=== PATIENT | male | born 1970 | race Caucasian/White ===

== ENCOUNTER 2019-07-14 09:41 | Emergency (ER) | payer SELFPAY ==
[2019-07-14 10:37] LABS: Absolute Lymphocytes (CBC) 1.4 K/uL (0.7-4.9); Basophils % 1.4 % (0-1.3); Hematocrit 46.8 % (39.6-49.0); Lymphocytes % 29.4 % (15.3-44.8); MPV 7.8 fL (7.6-11.3); RBC Red Blood Cell Count 4.65 M/uL (4.33-5.43)
[2019-07-14 10:50] LABS: Magnesium 2.1 mg/dL (1.8-2.4); Potassium 4.4 mmol/L (3.5-5.1)
--- NOTE | 2019-07-14 11:58 | ER ---
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 Denies history of HTN. Patient states "I've just been feeling funny for the past couple weeks, like today my face feels hot, and I'm a little dizzy sometimes". Transition of care: patient was not received from another setting of care. Onset of symptoms was July 14, 2019. Risk Assessment: Do you want to hurt yourself or someone else? Patient reports no desire to harm self or others. Initial Sepsis Screen: Does the patient meet any 2 criteria? No. Patient's initial sepsis screen is negative. Does the patient have a suspected source of infection? No. Patient's initial sepsis screen is negative. Care prior to arrival: None. 10:01 Method Of Arrival: Ambulatory aj1 10:01 Acuity: MARTÍNEZ 3 aj1 Triage Assessment: 10:03 General: Appears in no apparent distress. comfortable, Behavior is calm, cooperative, aj1 appropriate for age. Pain: Complains of pain in left hip Pain currently is 2 out of 10 on a pain scale. Neuro: Level of Consciousness is awake, alert, obeys commands. Cardiovascular: Patient's skin is warm and dry. Respiratory: Airway is patent Respiratory effort is even, unlabored, Respiratory pattern is regular, symmetrical. Historical: - Allergies: 10:03 NKDA; aj1 - Home Meds: 10:03 None [Active]; aj1 - PMHx: 10:03 None; aj1 - PSHx: 10:03 back surgery; c6-c7 fusion; aj1 - Immunization history:: Flu vaccine is not up to date. - Social history:: Smoking status: Patient uses tobacco products, smokes one-half pack cigarettes per day, chewing tobacco. - Ebola Screening: : Patient denies travel to an Ebola-affected area in the 21 days before illness onset. Screenin:07 Abuse screen: Denies threats or abuse. Nutritional screening: No deficits noted. tw2 Tuberculosis screening: No symptoms or risk factors identified. Fall Risk None identified. Assessment: 10:17 General: Appears in no apparent distress. obese, well groomed, Behavior is calm, tw2 cooperative, appropriate for age. Pain: Denies pain. Neuro: Level of Consciousness is awake, alert, obeys commands, Oriented to person, place, time, situation. Cardiovascular: Heart tones S1 S2 Patient's skin is warm and dry. Respiratory: Airway is patent Respiratory effort is even, unlabored, Respiratory pattern is regular, symmetrical, Breath sounds are clear bilaterally. GI: Abdomen is round non-distended, obese, Bowel sounds present X 4 quads. : No signs and/or symptoms were reported regarding the genitourinary system. EENT: No signs and/or symptoms were reported regarding the EENT system. Derm: No signs and/or symptoms reported regarding the dermatologic system. Musculoskeletal: Range of motion: intact in all extremities. 11:08 Reassessment: Patient appears in no apparent distress at this time. No changes from tw2 previously documented assessment. Patient and/or family updated on plan of care and expected duration. Pain level reassessed. Patient is alert, oriented x 3, equal unlabored respirations, skin warm/dry/pink. 11:57 Reassessment: Patient appears in no apparent distress at this time. No changes from tw2 previously documented assessment. Patient and/or family updated on plan of care and expected duration. Pain level reassessed. Patient is alert, oriented x 3, equal unlabored respirations, skin warm/dry/pink. 12:01 Reassessment: provider at bedside at this time. tw2 12:17 Reassessment: Patient appears in no apparent distress at this time. No changes from tw2 previously documented assessment. Patient and/or family updated on plan of care and expected duration. Pain level reassessed. Patient is alert, oriented x 3, equal unlabored respirations, skin warm/dry/pink. Vital Signs: 10:03 BP 160 / 89; Pulse 73; Resp 18; Temp 98.5; Pulse Ox 99% on R/A; Height 6 ft. 1 in. aj1 (185.42 cm) (R); Pain 2/10; 10:16 BP 152 / 86; Pulse 76; Resp 17; Pulse Ox 100% on R/A; tw2 11:08 BP 144 / 69; Pulse 71; Resp 17; Pulse Ox 97% on R/A; tw2 11:57 BP 151 / 86; Pulse 66; Resp 17; Pulse Ox 98% on R/A; tw2 ED Course: 09:45 Patient arrived in ED. ag5 09:45 Unknown, Unknown is Private Physician. ag5 09:50 Dimitrios Cano PA is PHCP. jr8 09:50 Dwaine Ware MD is Attending Physician. jr8 10:03 Triage completed. aj1 10:03 Arm band placed on Patient placed in an exam room. aj1 10:07 Steff Renee, RN is Primary Nurse. tw2 10:07 Bed in low position. Call light in reach. monitor tech on. Pulse ox on. NIBP on. tw2 10:26 Inserted saline lock: 20 gauge in right antecubital area, using aseptic technique. hb Blood collected. 12:01 No provider procedures requiring assistance completed. IV discontinued, intact, tw2 bleeding controlled, No redness/swelling at site. Pressure dressing applied. Administered Medications: No medications were administered Outcome: 11:58 Discharge ordered by . jr8 12:01 Discharged to home ambulatory. tw2 12:01 Condition: stable 12:01 Discharge instructions given to patient, Instructed on discharge instructions, follow up and referral plans. medication usage, Demonstrated understanding of instructions, follow-up care, medications, Prescriptions given X 2. 12:18 Patient left the ED. tw2 Signatures: Isabel Grider RN RN aj Dimitrios Cano PA PA jr8 Mihaela Armas RN RN Steff Renee RN RN tw2 Arlen Cuello ag5
--- NOTE | 2019-07-14 11:59 | EDPHYS ---
Physician Documentation [facility] Name: Prince Paul Age: 49 yrs Sex: Male : 1970 Arrival Date: 07/14/2019 Time: 09:45 Bed 8 Private MD: Unknown, Unknown ED Physician Dwaine Ware HPI: 07/14 10:31 This 49 yrs old Male presents to ER via Ambulatory with complaints of High jr8 Blood Pressure. 10:31 The patient has elevated blood pressure and discovered this work. Onset: The jr8 symptoms/episode began/occurred yesterday. Associated signs and symptoms: Pertinent negatives: chest pain, dizziness, dyspnea, headache, lightheadedness, nausea, visual changes, vomiting, weakness. Severity of symptoms: At its worst the blood pressure was moderate, in the emergency department the blood pressure is improved, markedly, 156 mm Hg. The patient has not experienced similar symptoms in the past. Pt was feeling bad at work, had BP checked, was in the 200s systolic, unknown cuff size or type. Pt reports at that time he had a OCHOA but it has since resolved. States he has not seen a doctor in many years and has no known history of HTN. Historical: - Allergies: 10:03 NKDA; aj1 - Home Meds: 10:03 None [Active]; aj1 - PMHx: 10:03 None; aj1 - PSHx: 10:03 back surgery; c6-c7 fusion; aj1 - Immunization history:: Flu vaccine is not up to date. - Social history:: Smoking status: Patient uses tobacco products, smokes one-half pack cigarettes per day, chewing tobacco. - Ebola Screening: : Patient denies travel to an Ebola-affected area in the 21 days before illness onset. ROS: 10:31 Constitutional: Negative for fever, chills, and weight loss, Eyes: Negative for injury, jr8 pain, redness, and discharge, ENT: Negative for injury, pain, and discharge, Neck: Negative for injury, pain, and swelling, Cardiovascular: Negative for chest pain, palpitations, and edema, Respiratory: Negative for shortness of breath, cough, wheezing, and pleuritic chest pain, Abdomen/GI: Negative for abdominal pain, nausea, vomiting, diarrhea, and constipation, Back: Negative for injury and pain, MS/Extremity: Negative for injury and deformity, Skin: Negative for injury, rash, and discoloration, Neuro: Negative for headache, weakness, numbness, tingling, and seizure. Exam: 10:31 Constitutional: This is a well developed, well nourished patient who is awake, alert, jr8 and in no acute distress. Head/Face: Normocephalic, atraumatic. Eyes: Pupils equal round and reactive to light, extra-ocular motions intact. Lids and lashes normal. Conjunctiva and sclera are non-icteric and not injected. Cornea within normal limits. Periorbital areas with no swelling, redness, or edema. ENT: Nares patent. No nasal discharge, no septal abnormalities noted. Tympanic membranes are normal and external auditory canals are clear. Oropharynx with no redness, swelling, or masses, exudates, or evidence of obstruction, uvula midline. Mucous membranes moist. Neck: Trachea midline, no thyromegaly or masses palpated, and no cervical lymphadenopathy. Supple, full range of motion without nuchal rigidity, or vertebral point tenderness. No Meningismus. Chest/axilla: Normal chest wall appearance and motion. Nontender with no deformity. No lesions are appreciated. Cardiovascular: Regular rate and rhythm with a normal S1 and S2. No gallops, murmurs, or rubs. Normal PMI, no JVD. No pulse deficits. Respiratory: Lungs have equal breath sounds bilaterally, clear to auscultation and percussion. No rales, rhonchi or wheezes noted. No increased work of breathing, no retractions or nasal flaring. Abdomen/GI: Soft, non-tender, with normal bowel sounds. No distension or tympany. No guarding or rebound. No evidence of tenderness throughout. MS/ Extremity: Pulses equal, no cyanosis. Neurovascular intact. Full, normal range of motion. Neuro: Awake and alert, GCS 15, oriented to person, place, time, and situation. Cranial nerves II-XII grossly intact. Motor strength 5/5 in all extremities. Sensory grossly intact. Cerebellar exam normal. Normal gait. Vital Signs: 10:03 BP 160 / 89; Pulse 73; Resp 18; Temp 98.5; Pulse Ox 99% on R/A; Height 6 ft. 1 in. aj1 (185.42 cm) (R); Pain 2/10; 10:16 BP 152 / 86; Pulse 76; Resp 17; Pulse Ox 100% on R/A; tw2 11:08 BP 144 / 69; Pulse 71; Resp 17; Pulse Ox 97% on R/A; tw2 11:57 BP 151 / 86; Pulse 66; Resp 17; Pulse Ox 98% on R/A; tw2 MDM: 10:30 Patient medically screened. [facility] 11:48 Data reviewed: vital signs, nurses notes, lab test result(s), EKG. Data interpreted: 8 Pulse oximetry: on room air is 97 %. Interpretation: normal. Counseling: I had a detailed discussion with the patient and/or guardian regarding: the historical points, exam findings, and any diagnostic results supporting the discharge/admit diagnosis, lab results, the need for outpatient follow up, a family practitioner, to return to the emergency department if symptoms worsen or persist or if there are any questions or concerns that arise at home. 07/14 10:22 Order name: CBC with Diff; Complete Time: 10:40 [facility] 07/14 10:22 Order name: BMP; Complete Time: 10:51 [facility] 07/14 10:22 Order name: Magnesium; Complete Time: 10:51 [facility] 07/14 11:29 Order name: Hemoglobin A1c [facility] 07/14 10:22 Order name: EKG; Complete Time: 10:23 [facility] 07/14 10:22 Order name: EKG - Nurse/Tech; Complete Time: 10:26 [facility] 07/14 11:35 Order name: Hemoglobin A1c; Complete Time: 11:57 EDMS Administered Medications: No medications were administered Disposition: 12:39 Co-signature as Attending Physician, Dwaine Ware MD. rn Disposition: 07/14/19 11:58 Discharged to Home. Impression: Type 2 diabetes mellitus, Essential (primary) hypertension. - Condition is Stable. - Discharge Instructions: Type 2 Diabetes Mellitus, Diagnosis, Adult, Hypertension, Heart Disease Prevention, Diabetes and Exercise, Diabetes Mellitus and Food, DASH Eating Plan. - Prescriptions for Metformin 500 mg Oral Tablet - take 1 tablet by ORAL route once daily for 7 days Then take 1 tablet with morning meals AND evening meals; 60 tablet. Lisinopril- Hydrochlorothiazide 10-12.5 mg Oral Tablet - take 1 tablet by ORAL route once daily; 30 tablet. - Medication Reconciliation Form, Thank You Letter, Antibiotic Education, Prescription Opioid Use, Work release form form. - Follow up: Private Physician; When: 1 week; Reason: Recheck today's complaints, Continuance of care, Re-evaluation by your physician. - Problem is new. - Symptoms have improved. Signatures: Dispatcher [employer] [facility] Isabel Grider RN RN aj1 Dwaine Ware MD MD rn Roszak, Josh, PA PA jr8 Steff Renee RN RN tw2 Corrections: (The following items were deleted from the chart) 10:53 10:52 HEMOGLOBIN A1C+CHEM A1C.LAB.BRZ ordered. [facility] 11:55 11:33 Hemoglobin A1c ordered. [facility] 12:18 11:58 07/14/2019 11:58 Discharged to Home. Impression: Type 2 diabetes mellitus; tw2 Essential (primary) hypertension. Condition is Stable. Discharge Instructions: Type 2 Diabetes Mellitus, Diagnosis, Adult, Hypertension, Heart Disease Prevention, Diabetes and Exercise, Diabetes Mellitus and Food, DASH Eating Plan. Prescriptions for Metformin 500 mg Oral Tablet - take 1 tablet by ORAL route once daily for 7 days Then take 1 tablet with morning meals AND evening meals; 60 tablet, Lisinopril-Hydrochlorothiazide 10-12.5 mg Oral Tablet - take 1 tablet by ORAL route once daily; 30 tablet. and Forms are Work release form, Medication Reconciliation Form, Thank You Letter, Antibiotic Education, Prescription Opioid Use. Follow up: Private Physician; When: 1 week; Reason: Recheck today's complaints, Continuance of care, Re-evaluation by your physician. Problem is new. Symptoms have improved. jr8
[2019-07-14 12:33] VITALS: TEMP 98.5
[2019-07-14 12:37] VITALS: BP 151/86; O2SAT 98
--- NOTE | 2019-07-15 06:17 | EKG ---
Test Date: 2019-07-14 Test Time: 10:28:41 Accounting Auditor: CLARIBEL MEASUREMENT RESULTS: Intervals: Rate: 65 [place]: 158 QRSD: 84 QT: 392 QTc: 407 Nichols: P: 6 AZ: 158 QRS: 4 T: 12 INTERPRETIVE STATEMENTS: Normal sinus rhythm normal ECG No previous ECG available for comparison Electronically Signed On 07-15-19 06:16:48 CDT by Noe Tyson
== END 2019-07-14 12:18 | disposition home or self-care (01) ==
LOC: ER 09:41
DX: I10 Essential (primary) hypertension (principal); E11.9 Type 2 diabetes mellitus without complications
CPT/HCPCS: 36415; 80048; 83036; 83735; 85025; 93005; 99284